=== PATIENT | female | born 1960 | race Caucasian/White ===

== ENCOUNTER 2017-01-08 14:19 | Emergency (ER) | payer OTHER ==
[2017-01-08 15:28] VITALS: BP 155/93
[2017-01-08] MEDS ORDERED: TORADOL IM ONE (17:52)
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
== END 2017-01-08 19:03 | disposition home or self-care (01) ==
LOC: ED 14:19
DX: M54.6 Pain in thoracic spine (principal); M54.5 Low back pain; R51 Headache; I10 Essential (primary) hypertension; E11.9 Type 2 diabetes mellitus without complications; V49.49XA Driver injured in collision with other motor vehicles in traffic accident, initial encounter; Y93.89 Activity, other specified; Y99.9 Unspecified external cause status; Y92.410 Unspecified street and highway as the place of occurrence of the external cause
CPT/HCPCS: 96372; 99282; J1885